=== PATIENT | female | born 1980 | race Caucasian/White ===

== ENCOUNTER 2019-06-15 11:49 | Emergency (ER) | payer SELFPAY ==
[2019-06-15 12:01] VITALS: BP 123/80; PULSE 60; TEMP 98.2
--- NOTE | 2019-06-15 12:40 | PDOC ---
History of Present Illness - General Chief Complaint: Chronic pain Stated Complaint: LOWER BACK PAIN Time Seen by Provider: 06/15/19 12:26 History Source: Patient Exam Limitations: No Limitations - History of Present Illness Initial Comments: 06/15/19 12:35 Patient came with complaints of worsening back pain for over one year. 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 The past 2 weeks this pain has progressively worsened where he has difficulty moving and getting out of bed. Denies numbness tingling to feet, denies problem with bowels or bladder, no fever. Has taken naproxen sodium with minimal resolved. Occurred: reports: other (has complained of ) Severity: reports: moderate Pain Location: reports: back Associated Symptoms (Fall): denies symptoms Past History - Travel Traveled outside of the country in the last 30 days: No Close contact w/someone who was outside of country & ill: No - Past Medical History Allergies/Adverse Reactions: Allergies Allergy/AdvReac Type Severity Reaction Status Date / Time No Known Allergies Allergy Verified 06/15/19 12:02 Home Medications: Ambulatory Orders Cyclobenzaprine HCl 10 mg PO Q8H PRN #14 tablet 06/15/19 COPD: No - Suicide/Smoking/Psychosocial Hx Smoking History: Never smoked Hx Alcohol Use: Yes Drug/Substance Use Hx: No Review of Systems - Review of Systems Able to Perform ROS?: Yes Is the patient limited Macedonian proficient: Yes Constitutional: Yes: Symptoms Reported, See HPI, Malaise HEENTM: Yes: See HPI. No: Symptoms Reported Respiratory: Yes: See HPI. No: Symptoms reported Musculoskeletal: Yes: Symptoms Reported, See HPI, Joint Pain, Joint Swelling All Other Systems: Reviewed and Negative *Physical Exam - Vital Signs Last Vital Signs Temp Pulse Resp BP Pulse Ox 98.2 F 60 16 123/80 99 06/15/19 11:58 06/15/19 11:58 06/15/19 11:58 06/15/19 11:58 06/15/19 11:58 - Physical Exam General Appearance: Yes: Nourished, Appropriately Dressed, Apparent Distress, Mild Distress HEENT: positive: JM, Normal ENT Inspection, TMs Normal, Pharynx Normal, Nasal Congestion Neck: positive: Supple. negative: Tender Respiratory/Chest: positive: Lungs Clear Gastrointestinal/Abdominal: positive: Soft. negative: Tender Musculoskeletal: positive: Normal Inspection, Decreased Range of Motion, Muscle Spasm (tender tight muscle vertebral spinous muscles primarily on the right side. Has no true point tenderness to bones, able to flex and extend it ways but has difficulty standing straight. Neurovascular intact to feet). negative: CVA Tenderness, Vertebral Tenderness Extremity: positive: Normal Inspection, Normal Range of Motion. negative: Normal Capillary Refill Integumentary: positive: Normal Color, Dry, Warm, Pale Neurologic: positive: medical referral coordinator II-XII NML intact, Fully Oriented, Alert, Normal Mood/ Affect, Normal Response, Motor Strength /5 Progress Note - Progress Note Progress Note: Chronic low back strain with acute exacerbation. We'll treat with NSAIDs and cyclobenzaprine *DC/Admit/Observation/Transfer Diagnosis at time of Disposition: Low back strain Qualifiers: Encounter type: initial encounter Qualified Code(s): S39.012A - Strain of muscle, fascia and tendon of lower back, initial encounter - Discharge Dispostion Disposition: HOME Condition at time of disposition: Stable Decision to Admit order: No - Referrals Referrals: Slava Billy MD [Staff Physician] - - Patient Instructions Printed Discharge Instructions: DI for Back Strain or Sprain Additional Instructions: Rest, no heavy lifting or exercise until pain is resolved Hot soaks to neck and low back as often as possible/hot showers or Jacuzzis No massage or therapy until spasm is gone Continue Naprosyn 500 mg tablet every 12 hours for the next 3 days then as needed for pain and swelling Cyclobenzaprine 1-10mg tab every 8 hours as needed for spasm If not significant improvement within 24 hours with medication and rest regime, followup with private physician for change in medications and /or therapy. Descansar, no levantar objetos pesados ??o hacer ejercicio hasta que se resuelva el dolor Baos calientes en el morena y la espalda baja con la mayor frecuencia posible / duchas calientes o jacuzzis Sin masajes ni terapia hasta que el espasmo desaparezca. Contine con Naprosyn 500 mg comprimido cada 12 horas dennys los prximos 3 morris y luego segn sea necesario para el dolor y la hinchazn. Cyclobenzaprine 1-10mg tab cada 8 horas segn sea necesario para el espasmo Si no mejora significativamente dentro de las 24 horas con la medicacin y el rgimen de descanso, nitin un seguimiento con un mdico privado para cambiar los medicamentos y / o la terapia. - Post Discharge Activity Forms/Work/School Notes: Back to Work
== END 2019-06-15 12:48 | disposition home or self-care (01) ==
LOC: JERFT 11:49
DX: S39.012A Strain of muscle, fascia and tendon of lower back, initial encounter (principal); X58.XXXA Exposure to other specified factors, initial encounter; Y93.89 Activity, other specified; Y92.038 Other place in apartment as the place of occurrence of the external cause; Y99.8 Other external cause status; Z87.828 Personal history of other (healed) physical injury and trauma
CPT/HCPCS: 99282-25